=== PATIENT | male | born 1940 | race Caucasian/White ===

== ENCOUNTER 2018-06-30 11:00 | Day surgery (SDC) | payer MEDICARE, MEDICAID ==
[2018-06-30] VITALS (7 sets, daily range): BP systolic 115–130; BP diastolic 64–100
[~2018-06-30] VITALS: Ht 172.7 cm; Wt 53.8 kg
[~2018-06-30 11:00] MED LIST: BACL20TA PO; GUAI600T45 PO; HYDR-4353 PO; ONDA4TAB6 PO
[2018-06-30] MEDS ORDERED: POTA10TA15 PO (11:24)
[2018-06-30] MEDS ORDERED: PREG50CA PO (11:24)
[2018-06-30] MEDS ORDERED: LOSA25TA12 PO (11:24)
[2018-06-30] MEDS ORDERED: DOXY100T2 PO (11:24)
[2018-06-30] MEDS ORDERED: FURO20TA4 PO (11:24)
[2018-06-30] MEDS ORDERED: midazolam 2 mg/2 ml injection ONE (13:20)
[2018-06-30] MEDS ORDERED: fentaNYL/PF 50MCG/1 ML 2ML syringe ONE (13:21)
== END 2018-06-30 15:03 | disposition home or self-care (01) ==
LOC: SSTAY O 11:00
PROVIDERS: ATTEND Radiology Diagnostic Radiology
DX: I89.8 Other specified noninfective disorders of lymphatic vessels and lymph nodes (principal); I10 Essential (primary) hypertension; J44.9 Chronic obstructive pulmonary disease, unspecified; Z85.118 Personal history of other malignant neoplasm of bronchus and lung; Z87.891 Personal history of nicotine dependence; Z99.81 Dependence on supplemental oxygen; Z72.89 Other problems related to lifestyle; Z92.21 Personal history of antineoplastic chemotherapy; Z92.3 Personal history of irradiation; Z98.41 Cataract extraction status, right eye; Z98.42 Cataract extraction status, left eye; Z79.2 Long term (current) use of antibiotics; Z79.891 Long term (current) use of opiate analgesic; Z98.890 Other specified postprocedural states; Z79.899 Other long term (current) drug therapy; Z82.0 Family history of epilepsy and other diseases of the nervous system; Z80.9 Family history of malignant neoplasm, unspecified
CPT/HCPCS: 10022; 76942; J2250; 38505; 88173; 88305; J3010